=== PATIENT | male | born 1980 | race Caucasian/White ===

== ENCOUNTER 2024-08-27 10:38 | Emergency (ER) | payer OTHER, SELFPAY ==
--- NOTE | 2024-08-27 10:41 | DI.RAD.S_ITS ---
PROCEDURE: XR CHEST 1V INDICATIONS: chest pain TECHNIQUE: One view of the chest was acquired. COMPARISON: None. FINDINGS: Surgical changes and devices: None. Lungs and pleura: Lungs are clear. No pleural effusions or pneumothorax. Mediastinum: Mediastinal contours appear normal. Heart size is normal. Bones and chest wall: No suspicious bony lesions. Overlying soft tissues appear unremarkable. IMPRESSION: No acute cardiopulmonary abnormality is seen. Dictated by: Kirby Locke M.D. on 08/27/2024 at 12:07 Approved by: Kirby Locke M.D. on 08/27/2024 at 12:07
--- NOTE | 2024-08-27 10:46 | EKG_ITS ---
[address] [address] Test Date: 2024-08-27 Pat Name: Jatin Olmedo Department: Room: Gender: Male Presidential Support Specialist: STEPHANIE : 1980 Requested By: Order Number: [id number] Reading MD: Jose Luis Balderas Measurements Intervals [place] Rate: 139 P: OR: QRS: 17 QRSD: 86 T: 28 QT: 282 QTc: 429 Interpretive Statements Atrial fibrillation with rapid ventricular response Electronically Signed On 09-02-2024 20:07:44 PDT by Jose Luis Balderas
[2024-08-27 10:50] VITALS: BP 118/92; PULSE 67; RESP 18; TEMP 36.6; O2SAT 98; BMI 36.9
--- NOTE | 2024-08-27 11:00 | EKG_ITS ---
[address] [address] Test Date: 2024-08-27 Pat Name: Jatin Olmedo Department: Room: Gender: Male Implementation Engineer: STEPHANIE : 1980 Requested By: Order Number: [id number] Reading MD: Jose Luis Balderas Measurements Intervals [place] Rate: 75 P: 29 VT: 160 QRS: 16 QRSD: 80 T: 21 QT: 348 QTc: 388 Interpretive Statements Normal sinus rhythm Electronically Signed On 09-02-2024 20:07:45 PDT by Jose Luis Balderas
[2024-08-27 11:03] VITALS: PULSE 76; RESP 14; O2SAT 98
[2024-08-27 11:08] LABS: Add Manual Diff / Slide Review NO; Basophils Absolute Auto 0 /uL (0-100); Basophils Percent Auto 0.3 % (0-2); Eosinophils Absolute Auto 400 /uL (0-450); Eosinophils Percent Auto 3.4 % (2-4); Hematocrit 52.4 % (41-53); Lymphocytes Absolute Auto 2400 /uL (1100-4500); Lymphocytes Percent Auto 21.3 % (25-40); Mean Corpuscular HGB Conc 34.4 % (30-36); Mean Corpuscular Hemoglobin 29.6 PG (26-34); Monocytes Absolute Auto 600 /uL (0-900); Monocytes Percent Auto 5.4 % (3-14); Neutrophils Absolute Auto 7900 /uL (1500-7000); Neutrophils Percent Auto 69.6 % (50-75); Platelet Count 331 X10^3/uL (150-400); Red Blood Cell Count 6.09 X10^6/uL (4.5-5.9); Red Cell Distribution Width 13.3 % (11.6-14.8); White Blood Cell Count 11.3 X10^3/uL (4.5-11.0)
[2024-08-27 11:09] VITALS: BP 135/78; PULSE 85
[2024-08-27] MEDS: METOPROLOL ER 25 MG TABLET PO (11:09)
[2024-08-27 11:10] LABS: INR 1.1 (0.9-1.3); Prothrombin Time 12.1 SECONDS (9.4-12.5)
[2024-08-27 11:12] LABS: PTT Partial Thromboplastin Tim 41 SECONDS (25.1-36.5)
[2024-08-27 11:14] LABS: Alanine Aminotransferase 27 IU/L (<50); Albumin 4.6 g/dL (3.5-5.0); Albumin Globulin Ratio 1.4 (1.0-2.8); Alkaline Phosphatase 58 U/L (38-126); Aspartate Aminotransferase 28 IU/L (17-59); BUN Creatinine Ratio 8.3 (6-22); Bilirubin Total 1.5 mg/dL (0.2-1.3); Blood Urea Nitrogen 10 mg/dL (9-20); Calcium 9.5 mg/dL (8.4-10.2); Carbon Dioxide 31 mmol/L (22-32); Chloride 101 mmol/L (98-107); Creatine Kinase 163 U/L (55-170); Estimated Glomerular Filt Rate > 60 mL/min (>60); Globulin 3.4 g/dL (1.7-4.1); Glucose 107 mg/dL (70-100); HEMOLYSIS < 15 (0-50); Lipase 45 U/L (23-300); Magnesium 1.9 mg/dL (1.6-2.3); Potassium 4.2 mmol/L (3.4-5.1); Sodium 140 mmol/L (137-145)
[2024-08-27 11:20] LABS: D Dimer < 215 ng/ml (<500)
[2024-08-27 11:26] LABS: NT-proBNP (BNP-Adult 18+) 1790 pg/mL (<125); Troponin I < 0.012 ng/mL (0.01-0.034)
--- NOTE | 2024-08-27 11:26 | ED_ITS ---
HPI - Arrhythmia/Palpitations General Chief Complaint: Arrhythmia/Palpitations Stated Complaint: Per patient he is in Afib Time Seen by Provider: 08/27/24 10:54 Source: patient Mode of arrival: Family Vehicle History of Present Illness HPI narrative: 43-year-old male visiting [facility] [place] [facility], yesterday ran up a hill and then felt palpitation fast heart rate sensation, presented to [facility] and had new diagnosis by EKG of atrial fibrillation, discharged home still in atrial fibrillation, started on metoprolol 25 mg XL and advised to take baby aspirin daily, and follow up in his home area. He apparently called the clinic regarding increased heart rate sensation and was advised to increase the dose to 50 mg daily, took these doses yesterday. This morning felt like he had increased heart rate sensation. No syncope or presyncope. No chest pain. No recent illness symptoms. No fevers or chills. Related Data Allergies Allergy/AdvReac Type Severity Reaction Status Date / Time No Known Drug Allergies Allergy Verified 08/27/24 10:58 Patient History Social History Smoking Status: Never smoker Smoking Status: Never smoker Exam Narrative Exam Narrative: GENERAL: Well-developed patient, in mild distress. HEAD: Atraumatic. Normocephalic. EYES: Pupils equal round and reactive. Extraocular motions intact. No scleral icterus. No injection or drainage. ENT: Nose without bleeding, purulent drainage. Throat without erythema, tonsillar hypertrophy or exudate. Airway patent. NECK: Trachea midline. Non tender CARDIOVASCULAR: Regular rate and rhythm without murmurs, gallops, or rubs. RESPIRATORY: Clear to auscultation. Breath sounds equal bilaterally. No wheezes, rales, or rhonchi. GASTROINTESTINAL: Abdomen soft, non-tender, nondistended. EXTREMITIES: No edema or joint tenderness. BACK: Nontender without deformity or crepitance. No flank tenderness. NEURO: AOx3. Motor functions grossly nonfocal SKIN: No rash or erythema of visible areas Initial Vital Signs Initial Vital Signs: Vital Signs Temperature 97.9 F 08/27/24 10:50 Pulse Rate 67 08/27/24 10:50 Respiratory Rate 18 08/27/24 10:50 Blood Pressure 118/92 H 08/27/24 10:50 Pulse Oximetry 98 08/27/24 10:50 Oxygen Delivery Method Room Air 08/27/24 10:50 Course Orders Ordered: ED Orders 08/27/24 10:55 Complete Blood Count AUTO DIFF Stat Comprehensive Metabolic Panel Stat D Dimer Stat Lipase Stat Magnesium Stat NT-proBNP (BNP-Adult 18+) Stat PTT Partial Thromboplastin Brigido Stat Prothrombin Time INR Stat Troponin & CK Cardiac Panel Stat 08/27/24 11:00 EKG-12 Lead Stat Discontinued Medications Aspirin (Aspirin 81 Mg Chew Tab) 324 mg PO NOW ONE Stop: 08/27/24 10:42 Last Admin: 08/27/24 11:26 Dose: Not Given Documented By: Metoprolol Succinate (Metoprolol Er 25 Mg Tablet) 25 mg PO NOW ONE Stop: 08/27/24 11:04 Last Admin: 08/27/24 11:09 Dose: 25 mg Documented By: Metoprolol Tartrate (Metoprolol Tartrate 5 Mg/5 Ml Inj) 5 mg IV Q5M EMILIANO Stop: 08/27/24 11:11 Last Admin: 08/27/24 11:27 Dose: Not Given Documented By: Admin: 08/27/24 11:03 Dose: Not Given Documented By: JF Vital Signs Vital signs: Vital Signs - 8 hr 08/27/24 12:00 08/27/24 12:00 08/27/24 12:00 Pulse Rate 75 70 77 Respiratory Rate 15 16 Blood Pressure 119/79 119/79 Pulse Oximetry 96 98 Oxygen Delivery Method Room Air MDM - Arrhythmia/Palpitations Lab Data Attestation: I reviewed the patient's lab results. Lab results narrative: White blood cell count 74416, hemoglobin 18.0, platelets [id number]. Glucose 107. BUN 10 with creatinine 1.21 normal renal function. Electrolytes unremarkable. Troponin negative/unmeasurable. BNP 1790 elevated. 08/27/24 10:55 08/27/24 10:55 Labs: Lab Results 08/27/24 Range/Units 10:55 WBC 11.3 H (4.5-11.0) X10^3/uL RBC 6.09 H (4.5-5.9) X10^6/uL Hgb 18.0 H (13.5-17.5) g/dL Hct 52.4 (41-53) % MCV 86.0 (80-100) fL MCH 29.6 (26-34) PG MCHC 34.4 (30-36) % RDW 13.3 (11.6-14.8) % Plt Count 331 (150-400) X10^3/uL Neut % (Auto) 69.6 (50-75) % Lymph % (Auto) 21.3 L (25-40) % [place] % (Auto) 5.4 (3-14) % Eos % (Auto) 3.4 (2-4) % Baso % (Auto) 0.3 (0-2) % Neut # (Auto) 7900 H (8923-0584) /uL Lymph # (Auto) 2400 (7346-1419) /uL [place] # (Auto) 600 (0-900) /uL Eos # (Auto) 400 (0-450) /uL Baso # (Auto) 0 (0-100) /uL PT 12.1 (9.4-12.5) SECONDS INR 1.1 (0.9-1.3) APTT 41 H (25.1-36.5) SECONDS D-Dimer < 215 (<500) ng/ml Sodium 140 (137-145) mmol/L Potassium 4.2 (3.4-5.1) mmol/L Chloride 101 (98-107) mmol/L Carbon Dioxide 31 (22-32) mmol/L BUN 10 (9-20) mg/dL Creatinine 1.21 (0.66-1.25) mg/dL Estimated GFR > 60 (>60) mL/min BUN/Creatinine Ratio 8.3 (6-22) Glucose 107 H (70-100) mg/dL Calcium 9.5 (8.4-10.2) mg/dL Magnesium 1.9 (1.6-2.3) mg/dL Total Bilirubin 1.5 H (0.2-1.3) mg/dL AST 28 (17-59) IU/L ALT 27 (<50) IU/L Alkaline Phosphatase 58 (38-126) U/L Total Creatine Kinase 163 (55-170) U/L Troponin I < 0.012 (0.01-0.034) ng/mL NT-Pro-B Natriuret Pep 1790 H (<125) pg/mL Total Protein 8.0 (6.3-8.2) g/dL Albumin 4.6 (3.5-5.0) g/dL Globulin 3.4 (1.7-4.1) g/dL Albumin/Globulin Ratio 1.4 (1.0-2.8) Lipase 45 (23-300) U/L ECG Data Attestation: I personally reviewed and interpreted this ECG as follows: Interpretation: 1046, atrial fibrillation with rapid ventricular response, ventricular rate 139, no obvious ST segment elevation or depression changes. QRS 86, QTC 429. 1100, normal sinus rhythm with rate of 75, no obvious ST segment elevation or depression changes. AK 160, QRS 80, QTC 388. MDM Narrative Medical decision making narrative: 43-year-old male visiting from [facility], was on [facility] yesterday running up a hill when he felt palpitation fast heart rate sensation, seen in local clinic there, EKG new diagnosis atrial fibrillation, was started on oral metoprolol, initial dose 25 mg increased dose to 50 mg yesterday, discharge still in atrial fibrillation with instructions to follow up your home. This morning felt fast heart rate sensation. Initial EKG shows atrial fibrillation with RVR rate 139, shortly after that initial EKG on monitor patient spontaneously converted to normal sinus rhythm. Confirmed on repeat EKG, no obvious ischemic changes. Labs pending. Chest x- ray pending. Electrolytes unremarkable. Troponin negative/unmeasurable. D-dimer negative. CXR unremarkable, no enlarged heart or CHF changes mentioned, see radiology report. BNP 1790 elevated, consider echocardiogram. Patient declines, prefers to have Echo in home [facility] in follow-up. Advised to continue taking his Metoprolol and his baby asirin daily. Patient would like to go home. FU with cardiology in home area advised. Return precautions discussed. Discharge Plan Departure Patient Disposition: Home Clinical Impression: Paroxysmal atrial fibrillation Instructions: DI for Atrial Fibrillation Activity Restrictions/Additional Instructions: Visiting from [facility], yesterday after [place] had fast heart rate sensation and seen at [facility] with new diagnosis of atrial fibrillation, started on metoprolol medication for rate control, felt to be low risk for chronic anticoagulation, though advised to take baby aspirin daily. You were discharged from the clinic still in atrial fibrillation, taking metoprolol, intending to have follow up in your home area. Increased heart rate sensation this morning. Initial EKG and bus driver/monitor suggest atrial fibrillation with rapid ventricular response, heart rate was 130s, a few minutes later you had spontaneous conversion on the bus driver/monitor to rule sinus rhythm, confirmed on repeat EKG. Copies of the EKGs from this visit were provided for follow up. Labs were sent, troponin and electrolytes normal. D- dimer negative, not suggestive of underlying abnormal clotting as an underlying reason for going into atrial fibrillation. BNP was elevated, unclear reason, consider cardiomyopathy or congestive heart failure not diagnosed. We talked about getting echocardiogram here today. You preferred to getting an echocardiogram in your home area. Also advised consideration for Cardiology consultation, specifically with perhaps electrophysiology specialist within Cardiology, regarding intermittent/paroxysmal atrial fibrillation new diagnosis. You have supply of your metoprolol and aspirin to take as prescribed. You will follow up in your home area to coordinate Cardiology/electrophysiology/echocardiogram and other consultations as needed. Return to this/nearest emergency department for any change worsening symptoms prior. Stand Alone Forms: Patient Portal/API/Survey
[2024-08-27 11:30] VITALS: BP 128/88; PULSE 72; PULSE 78; RESP 18; O2SAT 99
[2024-08-27 12:00] VITALS: BP 119/79; PULSE 70; PULSE 75; PULSE 77; RESP 15; RESP 16; O2SAT 96; O2SAT 98
== END 2024-08-27 12:29 | disposition home or self-care (01) ==
PROVIDERS: Emergency Provider Emergency Medicine
DX: I48.0 Paroxysmal atrial fibrillation (principal)
CPT/HCPCS: 36415; 71045; 80053; 82550; 83690; 83735; 83880; 84484; 85025; 85379; 85610; 85730; 93005; 99284